=== PATIENT | female | born 1940 | race Caucasian/White ===

== ENCOUNTER → 2023-09-29 15:26 | Outpatient (REF) | payer OTHER, SELFPAY | LOC: WDC 15:26 | PROVIDERS: ATTENDING PHYSICIAN Internal Medicine | DX: Z12.31 Encounter for screening mammogram for malignant neoplasm of breast (principal); Z12.39 Encounter for other screening for malignant neoplasm of breast | CPT/HCPCS: 77063; 77067 ==

== ENCOUNTER → 2024-09-29 15:30 | Outpatient (REF) | payer OTHER, SELFPAY | LOC: WDC 15:30 | PROVIDERS: ATTENDING PHYSICIAN Internal Medicine | DX: Z12.31 Encounter for screening mammogram for malignant neoplasm of breast (principal) | CPT/HCPCS: 77063; 77067 ==

== ENCOUNTER → 2025-01-23 13:09 | Outpatient (REF) | payer OTHER, SELFPAY | LOC: REG 13:09 | PROVIDERS: ATTENDING PHYSICIAN Internal Medicine | DX: M54.40 Lumbago with sciatica, unspecified side (principal); M54.2 Cervicalgia | CPT/HCPCS: 72052; 72110 ==

== ENCOUNTER → 2025-02-27 09:27 | Outpatient (REF) | payer OTHER, SELFPAY | LOC: RAD 09:27 | PROVIDERS: ATTENDING PHYSICIAN Internal Medicine | DX: M25.562 Pain in left knee (principal) | CPT/HCPCS: 73564 ==